=== PATIENT | male | born 1945 | race Caucasian/White ===

== ENCOUNTER 2016-09-29 22:07 | Emergency (ER) | payer MEDICARE ==
[~2016-09-29 22:07] MED LIST: ADVAIR; ADVAIR 2501 DISK W/D; ALBUTEROL17 GM; ALPRAZOLAM2 MG; ANTIVERT25 MG; ARTHRITIS MED; ASPIRIN325 MG; DILANTIN100 MG; LOVENOX40 MG/0.4; MULTIVITAMIN1 TAB; OXYCONTIN20 MG; PERCOCET 5/3251 TAB; PERCOCET 5/3251 TAB PO; VITAMIN B1100 MG; XANAX2 MG
[2016-09-29] MEDS ORDERED: ASPIRIN EC81 MG PO (22:38)
[2016-09-29] MEDS ORDERED: NORCO 5-325 TA1 EACH PO (23:30)
== END 2016-09-30 00:15 ==
LOC: EDMED 22:07
PROC: 2W3BXYZ Immobilization of Left Upper Arm using Other Device (ICD-10-PCS; principal; 2016-09-30)
DX: S42.252A Displaced fracture of greater tuberosity of left humerus, initial encounter for closed fracture (principal); S42.212A Unspecified displaced fracture of surgical neck of left humerus, initial encounter for closed fracture; Z87.81 Personal history of (healed) traumatic fracture; W11.XXXA Fall on and from ladder, initial encounter; Y92.009 Unspecified place in unspecified non-institutional (private) residence as the place of occurrence of the external cause